=== PATIENT | male | born 1940 | race Caucasian/White ===

== ENCOUNTER 2016-03-11 05:15 | Inpatient (IN) | payer OTHER ==
[2016-03-11] VITALS (8 sets, daily range): BP systolic 102–158; BP diastolic 51–71
[~2016-03-11] VITALS: Ht 167.6 cm; Wt 72.2 kg
[~2016-03-11 05:15] MED LIST: ASPIR 8181 M1 PO; BENAZEPRIL HCL40 MG PO; CENTRUM SILVER1 EAC5 PO; CRESTOR40 MG PO; FLUOXETINE HCL10 M1 PO; HYDROCHLOROTHIA25 MG PO; METOPROLOL SUCC50 MG PO; OMEGA-3 KRILL1 EACH PO; PRILOSEC20 MG PO; TAMSULOSIN HCL0.4 MG PO; TYLENOL EXTRA500 MG PO; VITAMIN B-12500 MC5 SL; VITAMIN B-6200 M1 PO
[2016-03-11 06:25] LABS: HEMATOCRIT 40.4 % (38.0-50.0); MCH 28.1 PG (29.0-34.0); MCHC 32.2 G/DL (30.0-36.0); MCV 87.3 FL (86-99); MEAN PLAT.VOLUME 10.8 uM^3 (9.0-12.4); PLATELET COUNT 219 K/uL (156-360); RBC DIS.WIDTH-CV 15.2 % (11.8-14.6); RBC DIS.WIDTH-SD 48.7 % (39-53); RED BLOOD COUNT 4.63 M/uL (4.00-5.50); WHITE BLOOD COUNT 8.9 K/uL (4.1-10.2)
[2016-03-11 06:52] LABS: ANION GAP 9 MEQ/L (2-14); CHLORIDE 103 MEQ/L (99-109); GFR ESTIMATE (CALCULATED) 48 mL/min/; GLUCOSE 94 mg/dL (70-99); POTASSIUM 4.3 MEQ/L (3.7-5.4); SAMPLE HEMOLYSIS CHECK 0; SAMPLE ICTERIC CHECK 0; SAMPLE LIPEMIA CHECK 0; SODIUM 139 MEQ/L (136-147); UREA NITROGEN (BUN) 24 mg/dL (9-23)
[2016-03-12 03:43] VITALS: BP 103/52
[2016-03-12 06:21] LABS: HEMATOCRIT 33.4 % (38.0-50.0); MCV 87.2 FL (86-99)
[2016-03-12 08:19] VITALS: BP 98/53
== END 2016-03-12 10:43 | disposition home or self-care (01) | DRG 483 ==
LOC: 3WEST 05:15 → 2SOUTH 05:15 → 3WEST 10:48 → 2SOUTH 11:17 → 3WEST 03-12 10:43
PROVIDERS: Orthopaedic Surgery
PROC: 0RRK00Z Replacement of Left Shoulder Joint with Reverse Ball and Socket Synthetic Substitute, Open Approach (ICD-10-PCS; principal; 2016-03-11)
PROC: 3E0T3CZ (ICD-10-PCS; principal; 2016-03-11)
DX: M12.812 Other specific arthropathies, not elsewhere classified, left shoulder (principal); I10 Essential (primary) hypertension; E78.00 Pure hypercholesterolemia, unspecified; N40.0 Benign prostatic hyperplasia without lower urinary tract symptoms; K21.9 Gastro-esophageal reflux disease without esophagitis; Z79.82 Long term (current) use of aspirin; Z87.891 Personal history of nicotine dependence
CPT/HCPCS: 80048; 85014; 85018; 85027; C1713; J0171; J0330; J0690; J1100; J1170; J2250; J2405; J2710; J2795; J3010; J7050; J7120

== ENCOUNTER 2016-09-11 11:51 | Inpatient (IN) | payer OTHER ==
[~2016-09-11] VITALS: Ht 167.6 cm; Wt 68.8 kg
[2016-09-11 12:48] LABS: HEMATOCRIT 40.2 % (38.0-50.0); MCH 27.3 PG (29.0-34.0); MCHC 31.6 G/DL (30.0-36.0); MCV 86.3 FL (86-99); MEAN PLAT.VOLUME 10.1 uM^3 (9.0-12.4); PLATELET COUNT 192 K/uL (156-360); RBC DIS.WIDTH-CV 14.3 % (11.8-14.6); RBC DIS.WIDTH-SD 45.2 % (39-53); RED BLOOD COUNT 4.66 M/uL (4.00-5.50); WHITE BLOOD COUNT 10.3 K/uL (4.1-10.2)
[2016-09-11 13:01] LABS: CHLORIDE 109 mEq/L (99-109); POTASSIUM 4.2 mEq/L (3.7-5.4); SODIUM 140 mEq/L (136-147)
[2016-09-11 13:03] LABS: GLUCOSE 100 mg/dL (70-99)
[2016-09-11 13:05] LABS: ANION GAP 12 MEQ/L (2-14)
[2016-09-11 13:07] LABS: GFR ESTIMATE (CALCULATED) 39 mL/min/
[2016-09-11 13:08] LABS: UREA NITROGEN (BUN) 29 mg/dL (9-23)
[2016-09-11 14:06] LABS: TROP-I INTERPRETATION NEGATIVE; TROPONIN-I < 0.01 ng/mL (0.0-0.30)
[2016-09-11] MEDS ORDERED: CENTRUM SILVER1 EAC5 PO (16:13)
[2016-09-11] MEDS ORDERED: VITAMIN B-6100 MG PO (16:13)
[2016-09-11] MEDS ORDERED: NASONEX17 GM BOTH NARES (16:14)
[2016-09-11] MEDS ORDERED: AZELASTINE137 MCG/0. BOTH NARES (16:14)
[2016-09-11 21:06] VITALS: BP 149/63
[2016-09-11 22:05] LABS: ADD MIUA? NO; BILIRUBIN NEGATIVE; BLOOD NEGATIVE; COLOR YELLOW ((YELLOW)); GLUCOSE (STRIP) NEGATIVE; KETONES NEGATIVE; LEUKOCYTES NEGATIVE; NITRITE NEGATIVE; PROTEIN (STRIP) NEGATIVE; SPECIFIC GRAVITY 1.009 (1.000-1.030); UROBILINOGEN 0.2 MG/DL (0.2-1.0)
[2016-09-11 23:52] VITALS: BP 117/55
[2016-09-12 03:46] VITALS: BP 115/55
[2016-09-12 06:14] LABS: MCH 27.4 PG (29.0-34.0); MCHC 31.8 G/DL (30.0-36.0); MCV 86.3 FL (86-99); MEAN PLAT.VOLUME 10.4 uM^3 (9.0-12.4); PLATELET COUNT 170 K/uL (156-360); RBC DIS.WIDTH-CV 14.4 % (11.8-14.6); RBC DIS.WIDTH-SD 45.4 % (39-53); RED BLOOD COUNT 3.94 M/uL (4.00-5.50); WHITE BLOOD COUNT 9.3 K/uL (4.1-10.2)
[2016-09-12 07:15] LABS: ANION GAP 9 MEQ/L (2-14); CHLORIDE 109 MEQ/L (99-109); GFR ESTIMATE (CALCULATED) 52 mL/min/; GLUCOSE 120 mg/dL (70-99); POTASSIUM 4.9 MEQ/L (3.7-5.4); SAMPLE HEMOLYSIS CHECK 0; SAMPLE ICTERIC CHECK 0; SAMPLE LIPEMIA CHECK 0; SODIUM 141 MEQ/L (136-147); UREA NITROGEN (BUN) 25 mg/dL (9-23)
[2016-09-12 07:30] VITALS: BP 113/57
[2016-09-12 11:18] VITALS: BP 98/53
[2016-09-12 15:51] VITALS: BP 102/56
[2016-09-12 19:15] VITALS: BP 130/63
[2016-09-12 23:36] VITALS: BP 105/54
[2016-09-13 06:07] LABS: HEMATOCRIT 32.5 % (38.0-50.0); MCH 28.3 PG (29.0-34.0); MCHC 32.9 G/DL (30.0-36.0); MEAN PLAT.VOLUME 10.6 uM^3 (9.0-12.4); PLATELET COUNT 179 K/uL (156-360); RBC DIS.WIDTH-CV 14.6 % (11.8-14.6); RBC DIS.WIDTH-SD 45.4 % (39-53); RED BLOOD COUNT 3.78 M/uL (4.00-5.50); WHITE BLOOD COUNT 14.9 K/uL (4.1-10.2)
[2016-09-13 06:32] LABS: ANION GAP 8 MEQ/L (2-14); CHLORIDE 107 MEQ/L (99-109); GFR ESTIMATE (CALCULATED) 45 mL/min/; GLUCOSE 143 mg/dL (70-99); POTASSIUM 4.9 MEQ/L (3.7-5.4); SAMPLE HEMOLYSIS CHECK 0; SAMPLE ICTERIC CHECK 0; SAMPLE LIPEMIA CHECK 0; SODIUM 138 MEQ/L (136-147); UREA NITROGEN (BUN) 31 mg/dL (9-23)
[2016-09-13 08:11] LABS: INTERNAL CONTROL VALID? YES
[2016-09-13 08:30] VITALS: BP 122/58
[2016-09-13 12:33] LABS: CREATINE KINASE 111 IU/L (1-294)
[2016-09-13 16:46] VITALS: BP 104/52
[2016-09-13 23:13] VITALS: BP 109/55
[2016-09-14 06:12] LABS: MCH 28.8 PG (29.0-34.0); MCHC 33.8 G/DL (30.0-36.0); MCV 85.3 FL (86-99); MEAN PLAT.VOLUME 10.7 uM^3 (9.0-12.4); PLATELET COUNT 215 K/uL (156-360); RBC DIS.WIDTH-CV 14.6 % (11.8-14.6); RBC DIS.WIDTH-SD 45.1 % (39-53); RED BLOOD COUNT 3.75 M/uL (4.00-5.50); WHITE BLOOD COUNT 16.9 K/uL (4.1-10.2)
[2016-09-14 06:40] LABS: ANION GAP 8 MEQ/L (2-14); CHLORIDE 106 MEQ/L (99-109); GFR ESTIMATE (CALCULATED) 52 mL/min/; GLUCOSE 130 mg/dL (70-99); MAGNESIUM 2.2 mg/dl (1.3-2.7); POTASSIUM 4.9 MEQ/L (3.7-5.4); SAMPLE HEMOLYSIS CHECK 0; SAMPLE ICTERIC CHECK 0; SAMPLE LIPEMIA CHECK 0; SODIUM 139 MEQ/L (136-147); UREA NITROGEN (BUN) 38 mg/dL (9-23)
[2016-09-14 07:35] VITALS: BP 115/72
[2016-09-14 15:15] VITALS: BP 107/56
[2016-09-14 20:50] VITALS: BP 125/78
[2016-09-15 00:26] VITALS: BP 114/57
[2016-09-15 08:05] VITALS: BP 106/56
[2016-09-15 16:20] VITALS: BP 128/59
[2016-09-15 23:37] VITALS: BP 135/65
[2016-09-16 06:55] VITALS: BP 151/67
[2016-09-16 07:24] LABS: HEMATOCRIT 35.5 % (38.0-50.0); MCH 27.2 PG (29.0-34.0); MCHC 31.8 G/DL (30.0-36.0); MCV 85.3 FL (86-99); MEAN PLAT.VOLUME 10.3 uM^3 (9.0-12.4); PLATELET COUNT 209 K/uL (156-360); RBC DIS.WIDTH-CV 14.2 % (11.8-14.6); RBC DIS.WIDTH-SD 44.3 % (39-53); RED BLOOD COUNT 4.16 M/uL (4.00-5.50)
[2016-09-16 07:49] LABS: ANION GAP 8 MEQ/L (2-14); CHLORIDE 102 MEQ/L (99-109); GFR ESTIMATE (CALCULATED) 57 mL/min/; MAGNESIUM 2.3 mg/dl (1.3-2.7); POTASSIUM 4.7 MEQ/L (3.7-5.4); SAMPLE HEMOLYSIS CHECK 0; SAMPLE ICTERIC CHECK 0; SAMPLE LIPEMIA CHECK 0; SODIUM 139 MEQ/L (136-147); UREA NITROGEN (BUN) 36 mg/dL (9-23)
[2016-09-16 07:50] LABS: GLUCOSE 79 mg/dL (70-99)
[2016-09-16 15:46] VITALS: BP 113/53
[2016-09-16 23:58] VITALS: BP 129/68
[2016-09-17 03:43] VITALS: BP 125/78
[2016-09-17 08:06] VITALS: BP 111/65
[2016-09-17 15:28] VITALS: BP 128/68
[2016-09-18 00:12] VITALS: BP 108/61
[2016-09-18 08:46] VITALS: BP 93/61
[2016-09-18] MEDS ORDERED: ACIDOPHILUS LA1 EACH PO (11:56)
[2016-09-18] MEDS ORDERED: PREDNISONE10 MG PO (11:56)
[2016-09-18] MEDS ORDERED: CEFTIN500 MG PO (11:56)
== END 2016-09-18 14:25 | disposition home or self-care (01) | DRG 193 ==
LOC: EME 11:51 → RME 11:51 → 2EAST 17:14 → EDOF 17:14 → 2EAST 19:55
PROVIDERS: Hospitalist; Internal Medicine; Nurse Practitioner Family
DX: J18.9 Pneumonia, unspecified organism (principal); J96.01 Acute respiratory failure with hypoxia; N17.9 Acute kidney failure, unspecified; E87.2 Acidosis; J98.01 Acute bronchospasm; I12.9 Hypertensive chronic kidney disease with stage 1 through stage 4 chronic kidney disease, or unspecified chronic kidney disease; N18.3 Chronic kidney disease, stage 3 (moderate); J02.9 Acute pharyngitis, unspecified; E78.5 Hyperlipidemia, unspecified; K21.9 Gastro-esophageal reflux disease without esophagitis; N40.0 Benign prostatic hyperplasia without lower urinary tract symptoms; M19.90 Unspecified osteoarthritis, unspecified site; Z96.612 Presence of left artificial shoulder joint; Z87.891 Personal history of nicotine dependence
CPT/HCPCS: 71010; 71020; 80048; 81003; 82550; 83605; 83735; 84484; 85027; 87040; 87070; 87205; 87449; 87651 90; 93005; 94010; 94640; 94640 76; 94760; 94799; 99202; 99281; 99285; J0456; J0696; J1644; J2920; J2930; J7030; J7050; J7120; J7512; S0028

== ENCOUNTER 2017-01-14 11:18 | Inpatient (IN) | payer OTHER ==
[~2017-01-14] VITALS: Ht 167.6 cm; Wt 66.1 kg
[2017-01-14] VITALS (10 sets, daily range): BP systolic 105–135; BP diastolic 41–65
[~2017-01-14 11:18] MED LIST changes: +ACIDOPHILUS LA1 EACH PO; +AZELASTINE137 MCG/0. BOTH NARES; +CEFTIN500 MG PO; +NASONEX17 GM BOTH NARES; +PREDNISONE10 MG PO; +VITAMIN B-6100 MG PO
[2017-01-14 11:53] LABS: BASE EXCESS -4.4 mEq/L (-3 to +3); BICARBONATE 20.2 mEq/L (22-26); CARBOXY HGB 1.6 % (0-5); COMMENTS - BLOOD GASES A+C+; DEVICE NRB MASK; FI02 100 %; METHEMOGLOBIN 1.1 % (0-1.5); O2 FLOW 15 L/MIN; PCO2 35 mm Hg (35-45); PO2 75 mm Hg (80-100); SITE RR; pH 7.37 (7.35-7.45)
[2017-01-14 12:26] LABS: BASOPHIL COUNT 0.1 K/uL (0-0.1); EOSINOPHIL (%) 0.8 % (0-5); EOSINOPHIL COUNT 0.1 K/uL (0-0.3); HEMATOCRIT 40.7 % (38.0-50.0); IMMATURE GRANULOCYTE (%) 0.2 % (0.0-0.7); INSTRUMENT ABS NEUTROPHIL CT 14.4 K/uL; LYMPHOCYTE COUNT 0.9 K/uL (1.0-2.8); MCH 26.4 PG (29.0-34.0); MCV 85.3 FL (86-99); MEAN PLAT.VOLUME 9.1 uM^3 (9.0-12.4); MONOCYTE (%) 3.1 % (3-12); MONOCYTE COUNT 0.5 K/uL (0-0.8); NEUTROPHIL (%) 89.9 % (45-76); NEUTROPHIL COUNT 14.4 K/uL (1.8-6.4); PLATELET COUNT 213 K/uL (156-360); RBC DIS.WIDTH-CV 14.9 % (11.8-14.6); RBC DIS.WIDTH-SD 46.9 % (39-53); RED BLOOD COUNT 4.77 M/uL (4.00-5.50); WHITE BLOOD COUNT 16.1 K/uL (4.1-10.2)
[2017-01-14 12:37] LABS: CHLORIDE 110 mEq/L (99-109); POTASSIUM 4.8 mEq/L (3.7-5.4); SODIUM 141 mEq/L (136-147)
[2017-01-14 12:38] LABS: MAGNESIUM 2.1 mg/dL (1.3-2.7)
[2017-01-14 12:39] LABS: GLUCOSE 100 mg/dL (70-99)
[2017-01-14 12:41] LABS: ANION GAP 9 MEQ/L (2-14); TOTAL BILIRUBIN 0.6 mg/dL (0.0-1.0)
[2017-01-14 12:43] LABS: ALKALINE PHOSPHATASE 55 IU/L (3-129); GFR ESTIMATE (CALCULATED) 42 mL/min/
[2017-01-14 12:44] LABS: UREA NITROGEN (BUN) 35 mg/dL (9-23)
[2017-01-14 12:49] LABS: TROP-I INTERPRETATION NEGATIVE; TROPONIN-I < 0.01 ng/mL (0.0-0.30)
[2017-01-14] MEDS ORDERED: HEARTBURN MEDICATION PO (13:25)
[2017-01-14 16:33] LABS: METH RESISTANT S AUREUS PCR NEGATIVE (NEGATIVE)
[2017-01-14 16:35] LABS: PROBE CHECK PASS; SPECIMEN PROCESSING CONTROL PASS
[2017-01-15] VITALS (24 sets, daily range): BP systolic 107–138; BP diastolic 40–78
[2017-01-15] MEDS ORDERED: ANORO ELLIPTA1 EACH IH (11:20)
[2017-01-15] MEDS ORDERED: VENTOLIN HFA18 GM IH (11:20)
[2017-01-16] VITALS (24 sets, daily range): BP systolic 104–155; BP diastolic 37–88
[2017-01-16 13:35] LABS: BASE EXCESS 0 mEq/L (-3 to +3); BICARBONATE 23.6 mEq/L (22-26); CARBOXY HGB 1.7 % (0-5); METHEMOGLOBIN 1.6 % (0-1.5); PCO2 34 mm Hg (35-45); PO2 61 mm Hg (80-100); pH 7.45 (7.35-7.45)
[2017-01-16 13:36] LABS: COMMENTS - BLOOD GASES A+C+; DEVICE HHFNC; FI02 80 %; O2 FLOW 40 L/MIN; SITE RR; TOTAL RESP RATE 30 resp/min
[2017-01-16 13:40] LABS: MCH 26.8 PG (29.0-34.0); MCHC 31.8 G/DL (30.0-36.0); MCV 84.3 FL (86-99); PLATELET COUNT 223 K/uL (156-360); RED BLOOD COUNT 4.51 M/uL (4.00-5.50); WHITE BLOOD COUNT 11.9 K/uL (4.1-10.2)
[2017-01-16 13:51] LABS: ANION GAP 9 MEQ/L (2-14); CHLORIDE 106 MEQ/L (99-109); POTASSIUM 4.6 MEQ/L (3.7-5.4); SAMPLE HEMOLYSIS CHECK 0; SAMPLE ICTERIC CHECK 0; SAMPLE LIPEMIA CHECK 0; SODIUM 139 MEQ/L (136-147)
[2017-01-16 13:56] LABS: GFR ESTIMATE (CALCULATED) 57 mL/min/; GLUCOSE 140 mg/dL (70-99); UREA NITROGEN (BUN) 31 mg/dL (9-23)
[2017-01-17] VITALS: BP 115/47
[2017-01-17 01:00] VITALS: BP 115/50
[2017-01-17 04:00] VITALS: BP 104/48
[2017-01-17 08:00] VITALS: BP 104/52
[2017-01-17 08:33] LABS: BASE EXCESS 2.5 mEq/L (-3 to +3); BICARBONATE 26.3 mEq/L (22-26); CARBOXY HGB 1.9 % (0-5); COMMENTS - BLOOD GASES A+C+; METHEMOGLOBIN 1.6 % (0-1.5); PCO2 37 mm Hg (35-45); SITE RR; pH 7.46 (7.35-7.45)
[2017-01-17 08:34] LABS: DEVICE HHFLNC; FI02 100 %; O2 FLOW 55 L/MIN; PO2 48 mm Hg (80-100); TOTAL RESP RATE 22 resp/min
[2017-01-17 09:13] LABS: HEMATOCRIT 37.9 % (38.0-50.0); MCH 26.5 PG (29.0-34.0); MCHC 31.7 G/DL (30.0-36.0); MCV 83.7 FL (86-99); MEAN PLAT.VOLUME 10.1 uM^3 (9.0-12.4); PLATELET COUNT 243 K/uL (156-360); RBC DIS.WIDTH-CV 14.9 % (11.8-14.6); RBC DIS.WIDTH-SD 45.1 % (39-53); RED BLOOD COUNT 4.53 M/uL (4.00-5.50); WHITE BLOOD COUNT 13.4 K/uL (4.1-10.2)
[2017-01-17 09:35] LABS: ANION GAP 8 MEQ/L (2-14); CHLORIDE 103 MEQ/L (99-109); GFR ESTIMATE (CALCULATED) 57 mL/min/; GLUCOSE 102 mg/dL (70-99); POTASSIUM 4.6 MEQ/L (3.7-5.4); SAMPLE HEMOLYSIS CHECK 0; SAMPLE ICTERIC CHECK 0; SAMPLE LIPEMIA CHECK 0; SODIUM 138 MEQ/L (136-147); UREA NITROGEN (BUN) 30 mg/dL (9-23)
[2017-01-17 12:00] VITALS: BP 131/87
[2017-01-17 20:00] VITALS: BP 95/52
[2017-01-18] VITALS (11 sets, daily range): BP systolic 83–112; BP diastolic 40–59
[2017-01-18 05:00] LABS: HEMATOCRIT 37.8 % (38.0-50.0); MCH 26.9 PG (29.0-34.0); MCV 84.2 FL (86-99); MEAN PLAT.VOLUME 10.4 uM^3 (9.0-12.4); PLATELET COUNT 254 K/uL (156-360); RBC DIS.WIDTH-CV 14.8 % (11.8-14.6); RBC DIS.WIDTH-SD 45.3 % (39-53); RED BLOOD COUNT 4.49 M/uL (4.00-5.50); WHITE BLOOD COUNT 13.3 K/uL (4.1-10.2)
[2017-01-18 05:15] LABS: CHLORIDE 103 mEq/L (99-109); POTASSIUM 5.1 mEq/L (3.7-5.4); SODIUM 137 mEq/L (136-147)
[2017-01-18 05:17] LABS: GLUCOSE 138 mg/dL (70-99)
[2017-01-18 05:18] LABS: ANION GAP 8 MEQ/L (2-14)
[2017-01-18 05:21] LABS: GFR ESTIMATE (CALCULATED) 45 mL/min/
[2017-01-18 05:22] LABS: UREA NITROGEN (BUN) 38 mg/dL (9-23)
[2017-01-18 20:47] LABS: ANION GAP 10 MEQ/L (2-14); CHLORIDE 102 MEQ/L (99-109); GFR ESTIMATE (CALCULATED) 39 mL/min/; GLUCOSE 142 mg/dL (70-99); POTASSIUM 4.2 MEQ/L (3.7-5.4); SAMPLE HEMOLYSIS CHECK 0; SAMPLE ICTERIC CHECK 0; SAMPLE LIPEMIA CHECK 0; SODIUM 137 MEQ/L (136-147); UREA NITROGEN (BUN) 50 mg/dL (9-23)
[2017-01-19] VITALS (8 sets, daily range): BP systolic 102–144; BP diastolic 34–67
[2017-01-19 08:07] LABS: HEMATOCRIT 35.3 % (38.0-50.0); MCHC 31.2 G/DL (30.0-36.0); MCV 83.5 FL (86-99); MEAN PLAT.VOLUME 9.8 uM^3 (9.0-12.4); PLATELET COUNT 244 K/uL (156-360); RBC DIS.WIDTH-CV 14.7 % (11.8-14.6); RBC DIS.WIDTH-SD 45.1 % (39-53); RED BLOOD COUNT 4.23 M/uL (4.00-5.50); WHITE BLOOD COUNT 13.5 K/uL (4.1-10.2)
[2017-01-19 08:22] LABS: ANION GAP 7 MEQ/L (2-14); CHLORIDE 108 MEQ/L (99-109); POTASSIUM 4.8 MEQ/L (3.7-5.4); SAMPLE HEMOLYSIS CHECK 0; SAMPLE ICTERIC CHECK 0; SAMPLE LIPEMIA CHECK 0; SODIUM 140 MEQ/L (136-147)
[2017-01-19 08:28] LABS: GFR ESTIMATE (CALCULATED) 48 mL/min/; GLUCOSE 133 mg/dL (70-99); UREA NITROGEN (BUN) 43 mg/dL (9-23)
[2017-01-20] VITALS (12 sets, daily range): BP systolic 116–156; BP diastolic 48–87
[2017-01-20 05:20] LABS: HEMATOCRIT 33.2 % (38.0-50.0); MCH 26.8 PG (29.0-34.0); MCHC 31.6 G/DL (30.0-36.0); MCV 84.7 FL (86-99); MEAN PLAT.VOLUME 9.9 uM^3 (9.0-12.4); PLATELET COUNT 209 K/uL (156-360); RBC DIS.WIDTH-CV 15.1 % (11.8-14.6); RBC DIS.WIDTH-SD 45.9 % (39-53); RED BLOOD COUNT 3.92 M/uL (4.00-5.50); WHITE BLOOD COUNT 12.3 K/uL (4.1-10.2)
[2017-01-20 05:47] LABS: ANION GAP 5 MEQ/L (2-14); CHLORIDE 110 MEQ/L (99-109); GFR ESTIMATE (CALCULATED) 48 mL/min/; GLUCOSE 145 mg/dL (70-99); SAMPLE HEMOLYSIS CHECK 0; SAMPLE ICTERIC CHECK 0; SAMPLE LIPEMIA CHECK 0; SODIUM 141 MEQ/L (136-147); UREA NITROGEN (BUN) 39 mg/dL (9-23)
[2017-01-21] VITALS (9 sets, daily range): BP systolic 123–161; BP diastolic 46–74
[2017-01-21 05:47] LABS: HEMATOCRIT 33.5 % (38.0-50.0); MCH 25.9 PG (29.0-34.0); MCHC 30.7 G/DL (30.0-36.0); MCV 84.2 FL (86-99); PLATELET COUNT 230 K/uL (156-360); RBC DIS.WIDTH-CV 14.9 % (11.8-14.6); RBC DIS.WIDTH-SD 45.5 % (39-53); RED BLOOD COUNT 3.98 M/uL (4.00-5.50); WHITE BLOOD COUNT 11.6 K/uL (4.1-10.2)
[2017-01-21 06:31] LABS: ANION GAP 7 MEQ/L (2-14); CHLORIDE 110 MEQ/L (99-109); GFR ESTIMATE (CALCULATED) 52 mL/min/; GLUCOSE 121 mg/dL (70-99); POTASSIUM 4.6 MEQ/L (3.7-5.4); SAMPLE HEMOLYSIS CHECK 0; SAMPLE ICTERIC CHECK 0; SAMPLE LIPEMIA CHECK 0; SODIUM 141 MEQ/L (136-147); UREA NITROGEN (BUN) 31 mg/dL (9-23)
[2017-01-22] VITALS (11 sets, daily range): BP systolic 110–149; BP diastolic 44–78
[2017-01-22 05:57] LABS: HEMATOCRIT 33.7 % (38.0-50.0); MCH 26.4 PG (29.0-34.0); MCHC 31.5 G/DL (30.0-36.0); MCV 83.8 FL (86-99); MEAN PLAT.VOLUME 10.5 uM^3 (9.0-12.4); PLATELET COUNT 237 K/uL (156-360); RBC DIS.WIDTH-CV 14.9 % (11.8-14.6); RBC DIS.WIDTH-SD 45.2 % (39-53); RED BLOOD COUNT 4.02 M/uL (4.00-5.50); WHITE BLOOD COUNT 11.4 K/uL (4.1-10.2)
[2017-01-22 06:19] LABS: ANION GAP 7 MEQ/L (2-14); CHLORIDE 109 MEQ/L (99-109); GFR ESTIMATE (CALCULATED) 57 mL/min/; GLUCOSE 111 mg/dL (70-99); POTASSIUM 4.3 MEQ/L (3.7-5.4); SAMPLE HEMOLYSIS CHECK 0; SAMPLE ICTERIC CHECK 0; SAMPLE LIPEMIA CHECK 0; SODIUM 142 MEQ/L (136-147); UREA NITROGEN (BUN) 28 mg/dL (9-23)
[2017-01-23] VITALS (8 sets, daily range): BP systolic 129–169; BP diastolic 55–122
[2017-01-23 05:39] LABS: HEMATOCRIT 34.9 % (38.0-50.0); MCH 26.4 PG (29.0-34.0); MCHC 31.2 G/DL (30.0-36.0); MCV 84.5 FL (86-99); MEAN PLAT.VOLUME 10.2 uM^3 (9.0-12.4); PLATELET COUNT 239 K/uL (156-360); RBC DIS.WIDTH-CV 14.9 % (11.8-14.6); RBC DIS.WIDTH-SD 45.4 % (39-53); RED BLOOD COUNT 4.13 M/uL (4.00-5.50); WHITE BLOOD COUNT 12.2 K/uL (4.1-10.2)
[2017-01-23 06:00] LABS: ANION GAP 8 MEQ/L (2-14); CHLORIDE 112 MEQ/L (99-109); GFR ESTIMATE (CALCULATED) 57 mL/min/; GLUCOSE 121 mg/dL (70-99); POTASSIUM 4.4 MEQ/L (3.7-5.4); SAMPLE HEMOLYSIS CHECK 0; SAMPLE ICTERIC CHECK 0; SAMPLE LIPEMIA CHECK 0; SODIUM 146 MEQ/L (136-147); UREA NITROGEN (BUN) 30 mg/dL (9-23)
[2017-01-24] VITALS (7 sets, daily range): BP systolic 134–167; BP diastolic 58–81
[2017-01-25] VITALS (8 sets, daily range): BP systolic 84–169; BP diastolic 46–79
[2017-01-25 05:28] LABS: HEMATOCRIT 35.6 % (38.0-50.0); MCH 26.7 PG (29.0-34.0); MCHC 31.7 G/DL (30.0-36.0); MCV 84.2 FL (86-99); MEAN PLAT.VOLUME 10.1 uM^3 (9.0-12.4); PLATELET COUNT 242 K/uL (156-360); RBC DIS.WIDTH-CV 15.2 % (11.8-14.6); RBC DIS.WIDTH-SD 46.6 % (39-53); RED BLOOD COUNT 4.23 M/uL (4.00-5.50)
[2017-01-25 05:55] LABS: ANION GAP 6 MEQ/L (2-14); CHLORIDE 112 MEQ/L (99-109); GFR ESTIMATE (CALCULATED) > 59 mL/min/; GLUCOSE 114 mg/dL (70-99); POTASSIUM 4.7 MEQ/L (3.7-5.4); SAMPLE HEMOLYSIS CHECK 0; SAMPLE ICTERIC CHECK 0; SAMPLE LIPEMIA CHECK 0; SODIUM 146 MEQ/L (136-147); UREA NITROGEN (BUN) 31 mg/dL (9-23)
[2017-01-26 04:43] VITALS: BP 160/63
[2017-01-26 06:01] LABS: ANION GAP 8 MEQ/L (2-14); CHLORIDE 110 MEQ/L (99-109); GFR ESTIMATE (CALCULATED) > 59 mL/min/; GLUCOSE 120 mg/dL (70-99); POTASSIUM 4.8 MEQ/L (3.7-5.4); SAMPLE HEMOLYSIS CHECK 0; SAMPLE ICTERIC CHECK 0; SAMPLE LIPEMIA CHECK 0; SODIUM 144 MEQ/L (136-147); UREA NITROGEN (BUN) 33 mg/dL (9-23)
[2017-01-26 10:22] VITALS: BP 157/72
[2017-01-26 12:30] VITALS: BP 136/63
[2017-01-26 19:00] VITALS: BP 118/57
[2017-01-27 03:30] VITALS: BP 152/67
[2017-01-27 08:35] VITALS: BP 160/74
[2017-01-27 11:54] VITALS: BP 135/62
[2017-01-27] MEDS ORDERED: SPIRIVA18 MCG IH (12:41)
[2017-01-27] MEDS ORDERED: LEVOFLOXACIN750 MG PO (12:41)
[2017-01-27] MEDS ORDERED: DUONEB 2.5-0.5 M3 ML AEROSOL (12:45)
[2017-01-27] MEDS ORDERED: INCRUSE ELLI62.5 MCG IH (15:48)
[2017-01-27] MEDS ORDERED: LEVAQUIN750 MG PO (16:21)
[2017-01-27] MEDS ORDERED: PREDNISONE10 MG PO ×2 (17:17→17:21)
[2017-01-27 17:45] VITALS: BP 131/62
== END 2017-01-27 17:48 | disposition home health service (06) | DRG 871 ==
LOC: EME → EDBD 11:18 → 4WEST 14:09 → EDOF 14:09 → ENRESERV 14:13 → 4WEST 14:56 → ENRESERV 01-20 18:19 → 4WEST 01-20 18:35 → ENRESERV 01-23 08:49 → 4EAST 01-23 17:48
PROVIDERS: Emergency Medicine; Family Medicine; Hospitalist; Internal Medicine; Internal Medicine Critical Care Medicine
DX: A41.9 Sepsis, unspecified organism (principal); J44.0 Chronic obstructive pulmonary disease with (acute) lower respiratory infection; J18.9 Pneumonia, unspecified organism; J96.01 Acute respiratory failure with hypoxia; N17.9 Acute kidney failure, unspecified; J44.1 Chronic obstructive pulmonary disease with (acute) exacerbation; I95.9 Hypotension, unspecified; E87.3 Alkalosis; B37.0 Candidal stomatitis; I12.9 Hypertensive chronic kidney disease with stage 1 through stage 4 chronic kidney disease, or unspecified chronic kidney disease; N18.3 Chronic kidney disease, stage 3 (moderate); D63.1 Anemia in chronic kidney disease; R60.0 Localized edema; E78.5 Hyperlipidemia, unspecified; F32.9 Major depressive disorder, single episode, unspecified; M19.90 Unspecified osteoarthritis, unspecified site; N40.0 Benign prostatic hyperplasia without lower urinary tract symptoms; K21.9 Gastro-esophageal reflux disease without esophagitis; H91.90 Unspecified hearing loss, unspecified ear; Z87.891 Personal history of nicotine dependence
CPT/HCPCS: 36600; 71010; 71020; 71275; 74230; 80048; 80048 91; 80053; 82803; 83605; 83735; 84484; 85025; 85027; 87040; 87070; 87205; 87641; 90686; 92526 GN; 92610 GN; 92611 GN; 93005; 93306; 94010; 94640; 94640 76; 94667; 94668; 94760; 94799; 97530 GO; 99202; 99281; 99285; C8923; J1100; J1644; J2543; J2920; J2930; J3370; J7030; J7050; J7512

== ENCOUNTER 2017-02-06 10:01 | Inpatient (IN) | payer OTHER ==
[~2017-02-06] VITALS: Ht 167.6 cm; Wt 57.0 kg
[~2017-02-06 10:01] MED LIST changes: +ANORO ELLIPTA1 EACH IH; +DUONEB 2.5-0.5 M3 ML AEROSOL; +INCRUSE ELLI62.5 MCG IH; +LEVAQUIN750 MG PO; +LEVOFLOXACIN750 MG PO; +PRILOSEC OTC20 MG PO; +SPIRIVA18 MCG IH; +VENTOLIN HFA18 GM IH
[2017-02-06 10:43] LABS: BASOPHIL (%) 0.2 % (0-1); EOSINOPHIL (%) 0.9 % (0-5); EOSINOPHIL COUNT 0.1 K/uL (0-0.3); HEMATOCRIT 44.5 % (38.0-50.0); IMMATURE GRANULOCYTE (%) 0.3 % (0.0-0.7); LYMPHOCYTE (%) 11.1 % (15-42); LYMPHOCYTE COUNT 1.4 K/uL (1.0-2.8); MCH 26.6 PG (29.0-34.0); MCHC 32.6 G/DL (30.0-36.0); MCV 81.5 FL (86-99); MONOCYTE (%) 5.1 % (3-12); MONOCYTE COUNT 0.6 K/uL (0-0.8); NEUTROPHIL (%) 82.4 % (45-76); NEUTROPHIL COUNT 10.2 K/uL (1.8-6.4); PLATELET COUNT 244 K/uL (156-360); RBC DIS.WIDTH-CV 15.7 % (11.8-14.6); RBC DIS.WIDTH-SD 45.1 % (39-53); WHITE BLOOD COUNT 12.4 K/uL (4.1-10.2)
[2017-02-06 10:44] LABS: HEMOGLOBIN 14.5 G/DL (12.5-16.6); RED BLOOD COUNT 5.46 M/uL (4.00-5.50)
[2017-02-06 10:46] LABS: ALBUMIN 3.9 g/dL (3.2-4.8); CHLORIDE 100 mEq/L (99-109); POTASSIUM 4.5 mEq/L (3.7-5.4); SODIUM 138 mEq/L (136-147)
[2017-02-06 10:49] LABS: GLUCOSE 112 mg/dL (70-99); TOTAL PROTEIN 7.7 g/dL (6.4-8.3)
[2017-02-06 10:51] LABS: TOTAL BILIRUBIN 1.3 mg/dL (0.0-1.0)
[2017-02-06 10:52] LABS: ALKALINE PHOSPHATASE 66 IU/L (3-129); CREATININE 1.3 mg/dL (0.6-1.3); GFR ESTIMATE (CALCULATED) 57 mL/min/ (58.99-99999)
[2017-02-06 10:53] LABS: UREA NITROGEN (BUN) 25 mg/dL (9-23)
[2017-02-06 10:54] LABS: AST (GOT) 22 IU/L (2-34)
[2017-02-06 10:55] LABS: ALT (GPT) 26 IU/L (3-49)
[2017-02-06 10:56] LABS: LIPASE 21 U/L (1.0-51.0)
[2017-02-06 10:57] LABS: TROP-I INTERPRETATION NEGATIVE; TROPONIN-I 0.07 ng/mL (0.0-0.30)
[2017-02-06 15:33] LABS: MAGNESIUM 2.1 mg/dL (1.3-2.7)
[2017-02-06 16:05] LABS: HDL CHOLESTEROL 40 MG/DL (Desirable>=40); LDL CHOLESTEROL 66 mg/dL (Desirable<100); NON-HDL CHOLESTEROL 96 mg/dL (Desirable<160); TOTAL CHOLESTEROL 136 mg/dL (Desirable<200); TRIGLYCERIDES 152 MG/DL (Normal: <150)
[2017-02-06 16:45] LABS: TROP-I INTERPRETATION NEGATIVE; TROPONIN-I 0.06 ng/mL (0.0-0.30)
[2017-02-06 21:06] VITALS: BP 100/48
[2017-02-06 22:23] LABS: TROP-I INTERPRETATION NEGATIVE; TROPONIN-I 0.06 ng/mL (0.0-0.30)
[2017-02-06 23:34] VITALS: BP 110/47
[2017-02-07 03:39] VITALS: BP 117/54
[2017-02-07 07:26] LABS: CHLORIDE 110 MEQ/L (99-109); POTASSIUM 4.4 MEQ/L (3.7-5.4); SODIUM 140 MEQ/L (136-147)
[2017-02-07 07:32] LABS: GFR ESTIMATE (CALCULATED) > 59 mL/min/ (58.99-99999); GLUCOSE 134 mg/dL (70-99); UREA NITROGEN (BUN) 24 mg/dL (9-23)
[2017-02-07 07:36] LABS: HEMATOCRIT 38.1 % (38.0-50.0); MCH 25.9 PG (29.0-34.0); MCHC 31.5 G/DL (30.0-36.0); MCV 82.1 FL (86-99); PLATELET COUNT 199 K/uL (156-360); RBC DIS.WIDTH-CV 15.2 % (11.8-14.6); RBC DIS.WIDTH-SD 45.7 % (39-53); RED BLOOD COUNT 4.64 M/uL (4.00-5.50); WHITE BLOOD COUNT 9.2 K/uL (4.1-10.2)
[2017-02-07 08:00] VITALS: BP 119/61
[2017-02-07 11:38] VITALS: BP 127/52
[2017-02-07 16:00] VITALS: BP 130/59
[2017-02-07 19:00] VITALS: BP 125/52
[2017-02-07 23:10] VITALS: BP 138/52
[2017-02-08 04:20] VITALS: BP 138/57
[2017-02-08 08:12] VITALS: BP 127/62
[2017-02-08 10:58] VITALS: BP 134/79
[2017-02-08 19:18] VITALS: BP 134/51
[2017-02-08 23:03] VITALS: BP 126/54
[2017-02-09 04:15] VITALS: BP 126/85
[2017-02-09 06:40] LABS: CHLORIDE 113 MEQ/L (99-109); CREATININE 0.9 MG/DL (0.6-1.3); GFR ESTIMATE (CALCULATED) > 59 mL/min/ (58.99-99999); GLUCOSE 144 mg/dL (70-99); MAGNESIUM 1.9 mg/dl (1.3-2.7); POTASSIUM 4.4 MEQ/L (3.7-5.4); SODIUM 142 MEQ/L (136-147); UREA NITROGEN (BUN) 28 mg/dL (9-23)
[2017-02-09 06:48] LABS: INTER. NORMALIZED RATIO 1.2
[2017-02-09 06:58] LABS: HEMATOCRIT 29.9 % (38.0-50.0); MCH 26.4 PG (29.0-34.0); MCHC 32.1 G/DL (30.0-36.0); MCV 82.1 FL (86-99); PLATELET COUNT 197 K/uL (156-360); RBC DIS.WIDTH-CV 15.7 % (11.8-14.6); RBC DIS.WIDTH-SD 46.6 % (39-53); WHITE BLOOD COUNT 16.2 K/uL (4.1-10.2)
[2017-02-09 06:59] LABS: HEMOGLOBIN 9.6 G/DL (12.5-16.6); RED BLOOD COUNT 3.64 M/uL (4.00-5.50)
[2017-02-09 08:00] VITALS: BP 129/54
[2017-02-09 12:04] VITALS: BP 130/52
[2017-02-09 17:02] VITALS: BP 135/52
[2017-02-09 19:00] VITALS: BP 143/54
[2017-02-10] VITALS (7 sets, daily range): BP systolic 134–164; BP diastolic 56–67
[2017-02-10 05:43] LABS: BASOPHIL (%) 0.1 % (0-1); EOSINOPHIL (%) 0 % (0-5); HEMATOCRIT 31.2 % (38.0-50.0); HEMOGLOBIN 9.9 G/DL (12.5-16.6); IMMATURE GRANULOCYTE (%) 0.5 % (0.0-0.7); LYMPHOCYTE (%) 1.8 % (15-42); LYMPHOCYTE COUNT 0.3 K/uL (1.0-2.8); MCHC 31.7 G/DL (30.0-36.0); MCV 81.9 FL (86-99); MONOCYTE (%) 1.8 % (3-12); MONOCYTE COUNT 0.3 K/uL (0-0.8); NEUTROPHIL (%) 95.8 % (45-76); NEUTROPHIL COUNT 15.1 K/uL (1.8-6.4); PLATELET COUNT 199 K/uL (156-360); RBC DIS.WIDTH-CV 15.9 % (11.8-14.6); RBC DIS.WIDTH-SD 46.4 % (39-53); RED BLOOD COUNT 3.81 M/uL (4.00-5.50); WHITE BLOOD COUNT 15.7 K/uL (4.1-10.2)
[2017-02-10 06:11] LABS: CHLORIDE 112 MEQ/L (99-109); CREATININE 0.9 MG/DL (0.6-1.3); GFR ESTIMATE (CALCULATED) > 59 mL/min/ (58.99-99999); GLUCOSE 137 mg/dL (70-99); POTASSIUM 4.3 MEQ/L (3.7-5.4); SODIUM 142 MEQ/L (136-147); UREA NITROGEN (BUN) 28 mg/dL (9-23)
[2017-02-11] VITALS (12 sets, daily range): BP systolic 141–171; BP diastolic 63–93
[2017-02-11 05:30] LABS: BASOPHIL (%) 0.1 % (0-1); EOSINOPHIL (%) 0 % (0-5); HEMATOCRIT 30.8 % (38.0-50.0); HEMOGLOBIN 9.9 G/DL (12.5-16.6); IMMATURE GRANULOCYTE (%) 0.5 % (0.0-0.7); LYMPHOCYTE (%) 1.6 % (15-42); LYMPHOCYTE COUNT 0.2 K/uL (1.0-2.8); MCH 26.3 PG (29.0-34.0); MCHC 32.1 G/DL (30.0-36.0); MCV 81.9 FL (86-99); MONOCYTE COUNT 0.3 K/uL (0-0.8); NEUTROPHIL (%) 95.8 % (45-76); NEUTROPHIL COUNT 12.7 K/uL (1.8-6.4); PLATELET COUNT 179 K/uL (156-360); RBC DIS.WIDTH-CV 16.2 % (11.8-14.6); RBC DIS.WIDTH-SD 47.3 % (39-53); RED BLOOD COUNT 3.76 M/uL (4.00-5.50); WHITE BLOOD COUNT 13.2 K/uL (4.1-10.2)
[2017-02-11 05:54] LABS: CHLORIDE 109 MEQ/L (99-109); CREATININE 0.8 MG/DL (0.6-1.3); GFR ESTIMATE (CALCULATED) > 59 mL/min/ (58.99-99999); GLUCOSE 138 mg/dL (70-99); POTASSIUM 4.3 MEQ/L (3.7-5.4); SODIUM 141 MEQ/L (136-147); UREA NITROGEN (BUN) 30 mg/dL (9-23)
[2017-02-11 15:37] LABS: HEMATOCRIT 32.5 % (38.0-50.0); HEMOGLOBIN 10.6 G/DL (12.5-16.6); MCH 26.6 PG (29.0-34.0); MCHC 32.6 G/DL (30.0-36.0); MCV 81.5 FL (86-99); PLATELET COUNT 180 K/uL (156-360); RBC DIS.WIDTH-CV 16.2 % (11.8-14.6); RBC DIS.WIDTH-SD 46.6 % (39-53); RED BLOOD COUNT 3.99 M/uL (4.00-5.50)
[2017-02-11 16:35] LABS: INTER. NORMALIZED RATIO 1.5
[2017-02-11 16:38] LABS: PTT 28.4 SEC (25-37)
[2017-02-12] VITALS (12 sets, daily range): BP systolic 128–173; BP diastolic 55–74
[2017-02-12 05:06] LABS: BASOPHIL (%) 0 % (0-1); EOSINOPHIL (%) 0 % (0-5); HEMATOCRIT 27.2 % (38.0-50.0); HEMOGLOBIN 8.9 G/DL (12.5-16.6); IMMATURE GRANULOCYTE (%) 0.7 % (0.0-0.7); LYMPHOCYTE COUNT 0.2 K/uL (1.0-2.8); MCH 26.6 PG (29.0-34.0); MCHC 32.7 G/DL (30.0-36.0); MCV 81.2 FL (86-99); MONOCYTE COUNT 0.2 K/uL (0-0.8); NEUTROPHIL (%) 95.3 % (45-76); NEUTROPHIL COUNT 9.8 K/uL (1.8-6.4); PLATELET COUNT 162 K/uL (156-360); RBC DIS.WIDTH-SD 46.1 % (39-53); RED BLOOD COUNT 3.35 M/uL (4.00-5.50); WHITE BLOOD COUNT 10.2 K/uL (4.1-10.2)
[2017-02-12 05:19] LABS: CHLORIDE 107 mEq/L (99-109); POTASSIUM 4.3 mEq/L (3.7-5.4); SODIUM 141 mEq/L (136-147)
[2017-02-12 05:20] LABS: GLUCOSE 125 mg/dL (70-99)
[2017-02-12 05:24] LABS: CREATININE 0.8 mg/dL (0.6-1.3); GFR ESTIMATE (CALCULATED) > 59 mL/min/ (58.99-99999)
[2017-02-12 05:25] LABS: UREA NITROGEN (BUN) 33 mg/dL (9-23)
[2017-02-13 05:05] VITALS: BP 155/70
[2017-02-13 06:23] LABS: BASOPHIL (%) 0.1 % (0-1); EOSINOPHIL (%) 0 % (0-5); HEMATOCRIT 32.4 % (38.0-50.0); HEMOGLOBIN 10.3 G/DL (12.5-16.6); IMMATURE GRANULOCYTE (%) 0.3 % (0.0-0.7); LYMPHOCYTE (%) 2.4 % (15-42); LYMPHOCYTE COUNT 0.3 K/uL (1.0-2.8); MCHC 31.8 G/DL (30.0-36.0); MCV 81.8 FL (86-99); MONOCYTE (%) 3.8 % (3-12); MONOCYTE COUNT 0.4 K/uL (0-0.8); NEUTROPHIL (%) 93.4 % (45-76); PLATELET COUNT 167 K/uL (156-360); RBC DIS.WIDTH-CV 15.7 % (11.8-14.6); RBC DIS.WIDTH-SD 45.6 % (39-53); RED BLOOD COUNT 3.96 M/uL (4.00-5.50); WHITE BLOOD COUNT 11.7 K/uL (4.1-10.2)
[2017-02-13 06:35] LABS: CHLORIDE 108 MEQ/L (99-109); CREATININE 0.8 MG/DL (0.6-1.3); GFR ESTIMATE (CALCULATED) > 59 mL/min/ (58.99-99999); GLUCOSE 119 mg/dL (70-99); POTASSIUM 4.2 MEQ/L (3.7-5.4); SODIUM 142 MEQ/L (136-147); UREA NITROGEN (BUN) 30 mg/dL (9-23)
[2017-02-13 07:48] VITALS: BP 164/71
[2017-02-13 11:40] VITALS: BP 139/65
[2017-02-13 17:18] VITALS: BP 137/63
[2017-02-13 19:36] VITALS: BP 154/70
[2017-02-13 23:10] VITALS: BP 146/62
[2017-02-14 05:30] VITALS: BP 142/58
[2017-02-14 06:16] LABS: BASOPHIL (%) 0.1 % (0-1); EOSINOPHIL (%) 0 % (0-5); HEMATOCRIT 33.3 % (38.0-50.0); HEMOGLOBIN 10.6 G/DL (12.5-16.6); IMMATURE GRANULOCYTE (%) 0.7 % (0.0-0.7); LYMPHOCYTE (%) 3.3 % (15-42); LYMPHOCYTE COUNT 0.4 K/uL (1.0-2.8); MCH 26.2 PG (29.0-34.0); MCHC 31.8 G/DL (30.0-36.0); MCV 82.2 FL (86-99); MONOCYTE (%) 5.7 % (3-12); MONOCYTE COUNT 0.7 K/uL (0-0.8); NEUTROPHIL (%) 90.2 % (45-76); NEUTROPHIL COUNT 10.8 K/uL (1.8-6.4); PLATELET COUNT 163 K/uL (156-360); RBC DIS.WIDTH-CV 15.7 % (11.8-14.6); RBC DIS.WIDTH-SD 46.3 % (39-53); RED BLOOD COUNT 4.05 M/uL (4.00-5.50)
[2017-02-14 07:03] VITALS: BP 158/60
[2017-02-14 11:15] VITALS: BP 134/63
[2017-02-14 16:47] VITALS: BP 142/64
[2017-02-14 19:52] VITALS: BP 138/54
[2017-02-15] VITALS (7 sets, daily range): BP systolic 109–147; BP diastolic 55–90
[2017-02-15 09:28] LABS: BASOPHIL (%) 0.2 % (0-1); EOSINOPHIL (%) 0.1 % (0-5); HEMATOCRIT 38.7 % (38.0-50.0); HEMOGLOBIN 12.5 G/DL (12.5-16.6); IMMATURE GRANULOCYTE (%) 0.7 % (0.0-0.7); LYMPHOCYTE (%) 6.8 % (15-42); LYMPHOCYTE COUNT 0.8 K/uL (1.0-2.8); MCH 26.7 PG (29.0-34.0); MCHC 32.3 G/DL (30.0-36.0); MCV 82.5 FL (86-99); MONOCYTE (%) 5.8 % (3-12); MONOCYTE COUNT 0.7 K/uL (0-0.8); NEUTROPHIL (%) 86.4 % (45-76); NEUTROPHIL COUNT 10.5 K/uL (1.8-6.4); PLATELET COUNT 175 K/uL (156-360); RBC DIS.WIDTH-CV 15.9 % (11.8-14.6); RBC DIS.WIDTH-SD 46.6 % (39-53); RED BLOOD COUNT 4.69 M/uL (4.00-5.50); WHITE BLOOD COUNT 12.1 K/uL (4.1-10.2)
[2017-02-15 10:17] LABS: CHLORIDE 101 MEQ/L (99-109); CREATININE 0.7 MG/DL (0.6-1.3); GFR ESTIMATE (CALCULATED) > 59 mL/min/ (58.99-99999); POTASSIUM 4.6 MEQ/L (3.7-5.4); SODIUM 140 MEQ/L (136-147); UREA NITROGEN (BUN) 27 mg/dL (9-23)
[2017-02-15 10:18] LABS: GLUCOSE 69 mg/dL (70-99)
[2017-02-16] VITALS (13 sets, daily range): BP systolic 97–146; BP diastolic 55–85
[2017-02-16 06:27] LABS: CHLORIDE 100 MEQ/L (99-109); CREATININE 0.8 MG/DL (0.6-1.3); GFR ESTIMATE (CALCULATED) > 59 mL/min/ (58.99-99999); GLUCOSE 114 mg/dL (70-99); POTASSIUM 4.2 MEQ/L (3.7-5.4); SODIUM 137 MEQ/L (136-147); UREA NITROGEN (BUN) 29 mg/dL (9-23)
[2017-02-17 04:25] VITALS: BP 117/54
[2017-02-17 05:33] LABS: BASOPHIL (%) 0.1 % (0-1); EOSINOPHIL (%) 0 % (0-5); HEMATOCRIT 36.5 % (38.0-50.0); HEMOGLOBIN 11.9 G/DL (12.5-16.6); IMMATURE GRANULOCYTE (%) 0.7 % (0.0-0.7); LYMPHOCYTE (%) 3.5 % (15-42); LYMPHOCYTE COUNT 0.5 K/uL (1.0-2.8); MCH 26.4 PG (29.0-34.0); MCHC 32.6 G/DL (30.0-36.0); MCV 80.9 FL (86-99); MONOCYTE (%) 6.6 % (3-12); NEUTROPHIL (%) 89.1 % (45-76); NEUTROPHIL COUNT 13.3 K/uL (1.8-6.4); PLATELET COUNT 175 K/uL (156-360); RBC DIS.WIDTH-CV 16.2 % (11.8-14.6); RBC DIS.WIDTH-SD 46.5 % (39-53); RED BLOOD COUNT 4.51 M/uL (4.00-5.50); WHITE BLOOD COUNT 14.9 K/uL (4.1-10.2)
[2017-02-17 06:37] LABS: CHLORIDE 100 MEQ/L (99-109); CREATININE 0.8 MG/DL (0.6-1.3); GFR ESTIMATE (CALCULATED) > 59 mL/min/ (58.99-99999); GLUCOSE 112 mg/dL (70-99); POTASSIUM 3.9 MEQ/L (3.7-5.4); SODIUM 138 MEQ/L (136-147); UREA NITROGEN (BUN) 29 mg/dL (9-23)
[2017-02-17 08:34] VITALS: BP 10/64; BP 100/64
[2017-02-17 11:05] VITALS: BP 119/71; BP 199/71
[2017-02-17 15:57] VITALS: BP 126/56
[2017-02-17 19:14] VITALS: BP 118/59
[2017-02-17 23:33] VITALS: BP 132/74
[2017-02-18] VITALS (10 sets, daily range): BP systolic 107–139; BP diastolic 52–79
[2017-02-18 06:31] LABS: BASOPHIL (%) 0.1 % (0-1); EOSINOPHIL (%) 0 % (0-5); HEMATOCRIT 38.5 % (38.0-50.0); HEMOGLOBIN 12.7 G/DL (12.5-16.6); IMMATURE GRANULOCYTE (%) 1.2 % (0.0-0.7); LYMPHOCYTE (%) 3.2 % (15-42); LYMPHOCYTE COUNT 0.6 K/uL (1.0-2.8); MCH 27.2 PG (29.0-34.0); MCV 82.4 FL (86-99); MONOCYTE (%) 5.9 % (3-12); NEUTROPHIL (%) 89.6 % (45-76); NEUTROPHIL COUNT 15.6 K/uL (1.8-6.4); PLATELET COUNT 178 K/uL (156-360); RBC DIS.WIDTH-SD 48.6 % (39-53); RED BLOOD COUNT 4.67 M/uL (4.00-5.50); WHITE BLOOD COUNT 17.4 K/uL (4.1-10.2)
[2017-02-18 06:56] LABS: CHLORIDE 100 MEQ/L (99-109); CREATININE 0.9 MG/DL (0.6-1.3); GFR ESTIMATE (CALCULATED) > 59 mL/min/ (58.99-99999); GLUCOSE 97 mg/dL (70-99); SODIUM 141 MEQ/L (136-147); UREA NITROGEN (BUN) 34 mg/dL (9-23)
[2017-02-19 04:00] VITALS: BP 132/64
[2017-02-19 05:39] LABS: BASOPHIL (%) 0.1 % (0-1); EOSINOPHIL (%) 0 % (0-5); HEMATOCRIT 36.6 % (38.0-50.0); HEMOGLOBIN 11.7 G/DL (12.5-16.6); IMMATURE GRANULOCYTE (%) 0.8 % (0.0-0.7); LYMPHOCYTE (%) 1.6 % (15-42); LYMPHOCYTE COUNT 0.3 K/uL (1.0-2.8); MCH 26.4 PG (29.0-34.0); MCV 82.4 FL (86-99); MONOCYTE (%) 1.9 % (3-12); MONOCYTE COUNT 0.3 K/uL (0-0.8); NEUTROPHIL (%) 95.6 % (45-76); NEUTROPHIL COUNT 16.4 K/uL (1.8-6.4); PLATELET COUNT 174 K/uL (156-360); RBC DIS.WIDTH-CV 16.8 % (11.8-14.6); RBC DIS.WIDTH-SD 49.1 % (39-53); RED BLOOD COUNT 4.44 M/uL (4.00-5.50); WHITE BLOOD COUNT 17.1 K/uL (4.1-10.2)
[2017-02-19 06:08] LABS: CHLORIDE 100 MEQ/L (99-109); CREATININE 0.9 MG/DL (0.6-1.3); GFR ESTIMATE (CALCULATED) > 59 mL/min/ (58.99-99999); GLUCOSE 135 mg/dL (70-99); SODIUM 139 MEQ/L (136-147); UREA NITROGEN (BUN) 37 mg/dL (9-23)
[2017-02-19 07:12] VITALS: BP 135/62
[2017-02-19 11:18] VITALS: BP 124/69
[2017-02-19 14:24] VITALS: BP 124/67
[2017-02-19 20:00] VITALS: BP 125/58
[2017-02-19 23:55] VITALS: BP 113/72
[2017-02-20] VITALS (15 sets, daily range): BP systolic 118–137; BP diastolic 52–79
[2017-02-20 05:50] LABS: BASOPHIL (%) 0.1 % (0-1); EOSINOPHIL (%) 0 % (0-5); HEMATOCRIT 35.3 % (38.0-50.0); HEMOGLOBIN 11.3 G/DL (12.5-16.6); IMMATURE GRANULOCYTE (%) 0.7 % (0.0-0.7); LYMPHOCYTE (%) 1.3 % (15-42); LYMPHOCYTE COUNT 0.3 K/uL (1.0-2.8); MCH 26.3 PG (29.0-34.0); MCV 82.1 FL (86-99); MONOCYTE (%) 2.3 % (3-12); MONOCYTE COUNT 0.5 K/uL (0-0.8); NEUTROPHIL (%) 95.6 % (45-76); NEUTROPHIL COUNT 19.8 K/uL (1.8-6.4); PLATELET COUNT 168 K/uL (156-360); RBC DIS.WIDTH-CV 16.8 % (11.8-14.6); RBC DIS.WIDTH-SD 49.4 % (39-53); WHITE BLOOD COUNT 20.7 K/uL (4.1-10.2)
[2017-02-20 06:10] LABS: CHLORIDE 98 MEQ/L (99-109); GFR ESTIMATE (CALCULATED) > 59 mL/min/ (58.99-99999); GLUCOSE 147 mg/dL (70-99); MAGNESIUM 2.1 mg/dl (1.3-2.7); POTASSIUM 3.7 MEQ/L (3.7-5.4); SODIUM 138 MEQ/L (136-147); UREA NITROGEN (BUN) 41 mg/dL (9-23)
[2017-02-20 08:34] LABS: BASE EXCESS 6.6 mEq/L (-3 to +3); BICARBONATE 28.7 mEq/L (22-26); CARBOXY HGB 2.1 % (0-5); METHEMOGLOBIN 1.8 % (0-1.5); PO2 57 mm Hg (80-100)
[2017-02-20 08:35] LABS: COMMENTS - BLOOD GASES A+C+; PCO2 32 mm Hg (35-45); SITE LR
[2017-02-20 08:36] LABS: DEVICE HHF; FI02 80 %; O2 FLOW 35 L/MIN
[2017-02-20 08:37] LABS: pH 7.56 (7.35-7.45)
[2017-02-21] VITALS (19 sets, daily range): BP systolic 94–137; BP diastolic 50–82
[2017-02-21 05:34] LABS: BASOPHIL (%) 0.2 % (0-1); EOSINOPHIL (%) 0 % (0-5); HEMATOCRIT 35.1 % (38.0-50.0); HEMOGLOBIN 11.5 G/DL (12.5-16.6); IMMATURE GRANULOCYTE (%) 0.9 % (0.0-0.7); LYMPHOCYTE (%) 0.9 % (15-42); LYMPHOCYTE COUNT 0.2 K/uL (1.0-2.8); MCH 27.2 PG (29.0-34.0); MCHC 32.8 G/DL (30.0-36.0); MONOCYTE (%) 2.9 % (3-12); MONOCYTE COUNT 0.7 K/uL (0-0.8); NEUTROPHIL (%) 95.1 % (45-76); NEUTROPHIL COUNT 21.7 K/uL (1.8-6.4); PLATELET COUNT 144 K/uL (156-360); RBC DIS.WIDTH-CV 17.1 % (11.8-14.6); RBC DIS.WIDTH-SD 50.8 % (39-53); RED BLOOD COUNT 4.23 M/uL (4.00-5.50); WHITE BLOOD COUNT 22.9 K/uL (4.1-10.2)
[2017-02-21 06:14] LABS: CHLORIDE 98 MEQ/L (99-109); CREATININE 0.9 MG/DL (0.6-1.3); GFR ESTIMATE (CALCULATED) > 59 mL/min/ (58.99-99999); GLUCOSE 116 mg/dL (70-99); POTASSIUM 3.5 MEQ/L (3.7-5.4); SODIUM 139 MEQ/L (136-147); UREA NITROGEN (BUN) 38 mg/dL (9-23)
[2017-02-22] VITALS (8 sets, daily range): BP systolic 129–179; BP diastolic 65–92
[2017-02-22 05:31] LABS: BASOPHIL (%) 0.1 % (0-1); EOSINOPHIL (%) 0 % (0-5); HEMOGLOBIN 11.3 G/DL (12.5-16.6); IMMATURE GRANULOCYTE (%) 0.7 % (0.0-0.7); LYMPHOCYTE (%) 1.1 % (15-42); LYMPHOCYTE COUNT 0.2 K/uL (1.0-2.8); MCH 27.6 PG (29.0-34.0); MCHC 33.2 G/DL (30.0-36.0); MCV 83.1 FL (86-99); MONOCYTE (%) 2.5 % (3-12); MONOCYTE COUNT 0.5 K/uL (0-0.8); NEUTROPHIL (%) 95.6 % (45-76); PLATELET COUNT 138 K/uL (156-360); RBC DIS.WIDTH-SD 50.4 % (39-53); RED BLOOD COUNT 4.09 M/uL (4.00-5.50); WHITE BLOOD COUNT 19.9 K/uL (4.1-10.2)
[2017-02-22 05:57] LABS: ALBUMIN 2.9 G/DL (3.2-4.8); ALKALINE PHOSPHATASE 61 IU/L (3-129); ALT (GPT) 40 IU/L (3-49); AST (GOT) 18 IU/L (2-34); CHLORIDE 98 MEQ/L (99-109); CREATININE 0.9 MG/DL (0.6-1.3); GFR ESTIMATE (CALCULATED) > 59 mL/min/ (58.99-99999); GLUCOSE 128 mg/dL (70-99); POTASSIUM 3.5 MEQ/L (3.7-5.4); SODIUM 139 MEQ/L (136-147); TOTAL BILIRUBIN 0.7 MG/DL (0.0-1.0); TOTAL PROTEIN 4.8 G/DL (6.4-8.3); UREA NITROGEN (BUN) 42 mg/dL (9-23)
[2017-02-23 04:28] VITALS: BP 145/86
[2017-02-23 05:04] LABS: BASOPHIL (%) 0.1 % (0-1); EOSINOPHIL (%) 0 % (0-5); HEMATOCRIT 35.5 % (38.0-50.0); HEMOGLOBIN 11.6 G/DL (12.5-16.6); IMMATURE GRANULOCYTE (%) 0.7 % (0.0-0.7); LYMPHOCYTE (%) 0.8 % (15-42); LYMPHOCYTE COUNT 0.2 K/uL (1.0-2.8); MCH 27.1 PG (29.0-34.0); MCHC 32.7 G/DL (30.0-36.0); MCV 82.9 FL (86-99); MONOCYTE (%) 1.6 % (3-12); MONOCYTE COUNT 0.3 K/uL (0-0.8); NEUTROPHIL (%) 96.8 % (45-76); NEUTROPHIL COUNT 18.3 K/uL (1.8-6.4); PLATELET COUNT 130 K/uL (156-360); RBC DIS.WIDTH-CV 17.1 % (11.8-14.6); RBC DIS.WIDTH-SD 50.9 % (39-53); RED BLOOD COUNT 4.28 M/uL (4.00-5.50); WHITE BLOOD COUNT 18.9 K/uL (4.1-10.2)
[2017-02-23 05:20] LABS: CHLORIDE 100 mEq/L (99-109); SODIUM 139 mEq/L (136-147)
[2017-02-23 05:21] LABS: GLUCOSE 156 mg/dL (70-99)
[2017-02-23 05:25] LABS: CREATININE 0.8 mg/dL (0.6-1.3); GFR ESTIMATE (CALCULATED) > 59 mL/min/ (58.99-99999)
[2017-02-23 05:26] LABS: UREA NITROGEN (BUN) 36 mg/dL (9-23)
[2017-02-23 07:51] VITALS: BP 142/62
[2017-02-23 11:59] VITALS: BP 139/66
[2017-02-23 16:20] VITALS: BP 167/75
[2017-02-23 19:35] VITALS: BP 160/72
[2017-02-23 23:20] VITALS: BP 166/72
[2017-02-24 03:19] VITALS: BP 126/60
[2017-02-24 06:31] LABS: BASOPHIL (%) 0.1 % (0-1); EOSINOPHIL (%) 0 % (0-5); HEMATOCRIT 36.3 % (38.0-50.0); HEMOGLOBIN 11.7 G/DL (12.5-16.6); IMMATURE GRANULOCYTE (%) 1.1 % (0.0-0.7); LYMPHOCYTE (%) 1.2 % (15-42); LYMPHOCYTE COUNT 0.3 K/uL (1.0-2.8); MCH 26.7 PG (29.0-34.0); MCHC 32.2 G/DL (30.0-36.0); MCV 82.7 FL (86-99); MONOCYTE (%) 2.4 % (3-12); MONOCYTE COUNT 0.6 K/uL (0-0.8); NEUTROPHIL (%) 95.2 % (45-76); NEUTROPHIL COUNT 22.6 K/uL (1.8-6.4); PLATELET COUNT 148 K/uL (156-360); RBC DIS.WIDTH-CV 17.1 % (11.8-14.6); RBC DIS.WIDTH-SD 50.6 % (39-53); RED BLOOD COUNT 4.39 M/uL (4.00-5.50); WHITE BLOOD COUNT 23.7 K/uL (4.1-10.2)
[2017-02-24 06:40] LABS: CHLORIDE 99 MEQ/L (99-109); CREATININE 0.9 MG/DL (0.6-1.3); GFR ESTIMATE (CALCULATED) > 59 mL/min/ (58.99-99999); GLUCOSE 122 mg/dL (70-99); SODIUM 140 MEQ/L (136-147); UREA NITROGEN (BUN) 38 mg/dL (9-23)
[2017-02-24 07:37] VITALS: BP 134/62
[2017-02-24 12:20] VITALS: BP 158/67
[2017-02-24 16:19] VITALS: BP 138/64
[2017-02-24 21:00] VITALS: BP 164/71
[2017-02-25 00:15] VITALS: BP 169/74
[2017-02-25 04:31] VITALS: BP 147/65
[2017-02-25 05:46] LABS: BASOPHIL (%) 0.1 % (0-1); EOSINOPHIL (%) 0 % (0-5); HEMATOCRIT 34.3 % (38.0-50.0); IMMATURE GRANULOCYTE (%) 0.7 % (0.0-0.7); LYMPHOCYTE COUNT 0.2 K/uL (1.0-2.8); MCH 26.7 PG (29.0-34.0); MCHC 32.1 G/DL (30.0-36.0); MCV 83.3 FL (86-99); MONOCYTE (%) 2.4 % (3-12); MONOCYTE COUNT 0.5 K/uL (0-0.8); NEUTROPHIL (%) 95.8 % (45-76); NEUTROPHIL COUNT 20.1 K/uL (1.8-6.4); PLATELET COUNT 137 K/uL (156-360); RBC DIS.WIDTH-CV 17.5 % (11.8-14.6); RBC DIS.WIDTH-SD 52.5 % (39-53); RED BLOOD COUNT 4.12 M/uL (4.00-5.50)
[2017-02-25 05:55] LABS: INTER. NORMALIZED RATIO 1.2
[2017-02-25 05:58] LABS: PTT 26.6 SEC (25-37)
[2017-02-25 06:21] LABS: CHLORIDE 100 MEQ/L (99-109); CREATININE 0.9 MG/DL (0.6-1.3); GFR ESTIMATE (CALCULATED) > 59 mL/min/ (58.99-99999); GLUCOSE 129 mg/dL (70-99); POTASSIUM 3.8 MEQ/L (3.7-5.4); SODIUM 141 MEQ/L (136-147); UREA NITROGEN (BUN) 41 mg/dL (9-23)
[2017-02-25 07:16] VITALS: BP 136/63
[2017-02-25 12:23] VITALS: BP 134/62
[2017-02-25 16:04] VITALS: BP 126/60
[2017-02-25 20:00] VITALS: BP 149/67
[2017-02-26] VITALS (7 sets, daily range): BP systolic 118–162; BP diastolic 56–72
[2017-02-26 05:28] LABS: CHLORIDE 100 MEQ/L (99-109); CREATININE 0.8 MG/DL (0.6-1.3); GFR ESTIMATE (CALCULATED) > 59 mL/min/ (58.99-99999); GLUCOSE 98 mg/dL (70-99); SODIUM 138 MEQ/L (136-147); UREA NITROGEN (BUN) 34 mg/dL (9-23)
[2017-02-27 03:23] VITALS: BP 131/61
[2017-02-27 05:37] LABS: HEMATOCRIT 32.9 % (38.0-50.0); HEMOGLOBIN 10.5 G/DL (12.5-16.6); MCH 26.6 PG (29.0-34.0); MCHC 31.9 G/DL (30.0-36.0); MCV 83.3 FL (86-99); PLATELET COUNT 137 K/uL (156-360); RBC DIS.WIDTH-CV 17.5 % (11.8-14.6); RBC DIS.WIDTH-SD 52.6 % (39-53); RED BLOOD COUNT 3.95 M/uL (4.00-5.50); WHITE BLOOD COUNT 18.4 K/uL (4.1-10.2)
[2017-02-27 05:59] LABS: CHLORIDE 101 MEQ/L (99-109); CREATININE 0.7 MG/DL (0.6-1.3); GFR ESTIMATE (CALCULATED) > 59 mL/min/ (58.99-99999); GLUCOSE 86 mg/dL (70-99); POTASSIUM 3.8 MEQ/L (3.7-5.4); SODIUM 139 MEQ/L (136-147); UREA NITROGEN (BUN) 31 mg/dL (9-23)
[2017-02-27 08:38] VITALS: BP 132/61
[2017-02-27 12:50] VITALS: BP 135/64
[2017-02-27 15:51] VITALS: BP 132/63
[2017-02-27 19:05] VITALS: BP 130/60
[2017-02-27 22:15] VITALS: BP 126/60
[2017-02-28 04:17] VITALS: BP 139/66
[2017-02-28 06:52] VITALS: BP 132/67
[2017-02-28 11:54] VITALS: BP 149/67
[2017-02-28 16:12] VITALS: BP 135/63
[2017-02-28 21:00] VITALS: BP 165/73
[2017-03-01] VITALS (7 sets, daily range): BP systolic 128–152; BP diastolic 61–71
[2017-03-01 05:51] LABS: HEMATOCRIT 31.8 % (38.0-50.0); HEMOGLOBIN 10.2 G/DL (12.5-16.6); MCH 27.1 PG (29.0-34.0); MCHC 32.1 G/DL (30.0-36.0); MCV 84.6 FL (86-99); PLATELET COUNT 152 K/uL (156-360); RBC DIS.WIDTH-CV 17.8 % (11.8-14.6); RBC DIS.WIDTH-SD 53.9 % (39-53); RED BLOOD COUNT 3.76 M/uL (4.00-5.50); WHITE BLOOD COUNT 16.2 K/uL (4.1-10.2)
[2017-03-01 06:14] LABS: CHLORIDE 100 MEQ/L (99-109); CREATININE 0.8 MG/DL (0.6-1.3); GFR ESTIMATE (CALCULATED) > 59 mL/min/ (58.99-99999); GLUCOSE 102 mg/dL (70-99); POTASSIUM 4.4 MEQ/L (3.7-5.4); SODIUM 138 MEQ/L (136-147); UREA NITROGEN (BUN) 32 mg/dL (9-23)
[2017-03-02 04:54] VITALS: BP 136/63
[2017-03-02 05:30] LABS: HEMATOCRIT 32.6 % (38.0-50.0); HEMOGLOBIN 10.3 G/DL (12.5-16.6); MCH 26.5 PG (29.0-34.0); MCHC 31.6 G/DL (30.0-36.0); PLATELET COUNT 168 K/uL (156-360); RBC DIS.WIDTH-SD 54.3 % (39-53); RED BLOOD COUNT 3.88 M/uL (4.00-5.50); WHITE BLOOD COUNT 14.2 K/uL (4.1-10.2)
[2017-03-02 05:54] LABS: CHLORIDE 100 MEQ/L (99-109); CREATININE 0.8 MG/DL (0.6-1.3); GFR ESTIMATE (CALCULATED) > 59 mL/min/ (58.99-99999); GLUCOSE 93 mg/dL (70-99); SODIUM 137 MEQ/L (136-147); UREA NITROGEN (BUN) 32 mg/dL (9-23)
[2017-03-02 07:45] VITALS: BP 138/65
[2017-03-02 12:00] VITALS: BP 143/72
[2017-03-02 16:14] VITALS: BP 144/65
[2017-03-02 20:00] VITALS: BP 140/63
[2017-03-03 00:25] VITALS: BP 132/65
[2017-03-03 03:02] VITALS: BP 154/74
[2017-03-03 05:13] LABS: HEMATOCRIT 32.3 % (38.0-50.0); HEMOGLOBIN 10.3 G/DL (12.5-16.6); MCH 26.7 PG (29.0-34.0); MCHC 31.9 G/DL (30.0-36.0); MCV 83.7 FL (86-99); PLATELET COUNT 172 K/uL (156-360); RBC DIS.WIDTH-CV 18.2 % (11.8-14.6); RBC DIS.WIDTH-SD 54.3 % (39-53); RED BLOOD COUNT 3.86 M/uL (4.00-5.50); WHITE BLOOD COUNT 11.8 K/uL (4.1-10.2)
[2017-03-03 05:58] LABS: CHLORIDE 102 MEQ/L (99-109); CREATININE 0.8 MG/DL (0.6-1.3); GFR ESTIMATE (CALCULATED) > 59 mL/min/ (58.99-99999); GLUCOSE 81 mg/dL (70-99); SODIUM 141 MEQ/L (136-147); UREA NITROGEN (BUN) 29 mg/dL (9-23)
[2017-03-03 07:30] VITALS: BP 141/63
[2017-03-03 12:09] VITALS: BP 134/64
[2017-03-03 15:49] VITALS: BP 139/67
[2017-03-03 20:30] VITALS: BP 113/59
[2017-03-04 00:30] VITALS: BP 122/70
[2017-03-04 03:00] VITALS: BP 120/74
[2017-03-04 05:25] LABS: HEMATOCRIT 33.7 % (38.0-50.0); HEMOGLOBIN 10.7 G/DL (12.5-16.6); MCH 27.2 PG (29.0-34.0); MCHC 31.8 G/DL (30.0-36.0); MCV 85.8 FL (86-99); PLATELET COUNT 170 K/uL (156-360); RBC DIS.WIDTH-CV 18.5 % (11.8-14.6); RBC DIS.WIDTH-SD 56.7 % (39-53); RED BLOOD COUNT 3.93 M/uL (4.00-5.50); WHITE BLOOD COUNT 9.8 K/uL (4.1-10.2)
[2017-03-04 05:48] LABS: ALBUMIN 2.6 G/DL (3.2-4.8); ALKALINE PHOSPHATASE 55 IU/L (3-129); ALT (GPT) 99 IU/L (3-49); AST (GOT) 25 IU/L (2-34); CHLORIDE 101 MEQ/L (99-109); CREATININE 0.7 MG/DL (0.6-1.3); GFR ESTIMATE (CALCULATED) > 59 mL/min/ (58.99-99999); GLUCOSE 95 mg/dL (70-99); POTASSIUM 4.4 MEQ/L (3.7-5.4); SODIUM 141 MEQ/L (136-147); TOTAL BILIRUBIN 0.8 MG/DL (0.0-1.0); TOTAL PROTEIN 4.7 G/DL (6.4-8.3); UREA NITROGEN (BUN) 25 mg/dL (9-23)
[2017-03-04 05:50] LABS: ALBUMIN 2.6 G/DL (3.2-4.8); ALKALINE PHOSPHATASE 56 IU/L (3-129); ALT (GPT) 100 IU/L (3-49); AST (GOT) 24 IU/L (2-34); CHLORIDE 101 MEQ/L (99-109); CREATININE 0.7 MG/DL (0.6-1.3); DIRECT BILIRUBIN 0.2 mg/dL (0.0-0.3); GFR ESTIMATE (CALCULATED) > 59 mL/min/ (58.99-99999); GLUCOSE 94 mg/dL (70-99); PHOSPHORUS 3.3 mg/dL (2.5-4.9); POTASSIUM 4.3 MEQ/L (3.7-5.4); SODIUM 141 MEQ/L (136-147); TOTAL BILIRUBIN 0.8 MG/DL (0.0-1.0); TOTAL PROTEIN 4.7 G/DL (6.4-8.3); TRIGLYCERIDES 100 MG/DL (Normal: <150); UREA NITROGEN (BUN) 25 mg/dL (9-23)
[2017-03-04 07:28] VITALS: BP 136/63
[2017-03-04 11:48] VITALS: BP 137/62
[2017-03-04 18:32] VITALS: BP 130/66
[2017-03-04 19:30] VITALS: BP 134/63
[2017-03-05] VITALS (14 sets, daily range): BP systolic 102–134; BP diastolic 52–82
[2017-03-05 05:45] LABS: HEMATOCRIT 31.5 % (38.0-50.0); HEMOGLOBIN 10.2 G/DL (12.5-16.6); MCH 27.3 PG (29.0-34.0); MCHC 32.4 G/DL (30.0-36.0); MCV 84.5 FL (86-99); PLATELET COUNT 155 K/uL (156-360); RBC DIS.WIDTH-CV 18.8 % (11.8-14.6); RBC DIS.WIDTH-SD 56.9 % (39-53); RED BLOOD COUNT 3.73 M/uL (4.00-5.50); WHITE BLOOD COUNT 11.1 K/uL (4.1-10.2)
[2017-03-05 06:08] LABS: CHLORIDE 100 MEQ/L (99-109); CREATININE 0.7 MG/DL (0.6-1.3); GFR ESTIMATE (CALCULATED) > 59 mL/min/ (58.99-99999); POTASSIUM 3.7 MEQ/L (3.7-5.4); SODIUM 139 MEQ/L (136-147); UREA NITROGEN (BUN) 22 mg/dL (9-23)
[2017-03-05 06:09] LABS: GLUCOSE 64 mg/dL (70-99)
[2017-03-05 12:22] LABS: BASE EXCESS 7.1 mEq/L (-3 to +3); BICARBONATE 29.9 mEq/L (22-26); CARBOXY HGB 1.5 % (0-5); METHEMOGLOBIN 1.6 % (0-1.5); PCO2 35 mm Hg (35-45); pH 7.54 (7.35-7.45)
[2017-03-05 12:23] LABS: DEVICE NRBM; FI02 100 %; O2 FLOW 15 L/MIN; PO2 40 mm Hg (80-100); SITE RR
[2017-03-05 12:24] LABS: COMMENTS - BLOOD GASES A+C+
[2017-03-06] VITALS (18 sets, daily range): BP systolic 114–143; BP diastolic 53–66
[2017-03-06 05:59] LABS: EOSINOPHIL (%) 0 % (0-5); HEMOGLOBIN 11.1 G/DL (12.5-16.6); LYMPHOCYTE (%) 2.6 % (15-42); MCH 26.9 PG (29.0-34.0); MCHC 31.7 G/DL (30.0-36.0); MCV 84.7 FL (86-99); MONOCYTE (%) 0.9 % (3-12); NEUTROPHIL (%) 95.8 % (45-76); PLATELET COUNT 189 K/uL (156-360); RBC DIS.WIDTH-CV 19.3 % (11.8-14.6); RBC DIS.WIDTH-SD 58.2 % (39-53); RED BLOOD COUNT 4.13 M/uL (4.00-5.50)
[2017-03-06 06:00] LABS: BASOPHIL (%) 0.1 % (0-1); IMMATURE GRANULOCYTE (%) 0.6 % (0.0-0.7); LYMPHOCYTE COUNT 0.4 K/uL (1.0-2.8); MONOCYTE COUNT 0.2 K/uL (0-0.8); NEUTROPHIL COUNT 15.3 K/uL (1.8-6.4)
[2017-03-06 06:26] LABS: CHLORIDE 103 MEQ/L (99-109); CREATININE 0.7 MG/DL (0.6-1.3); GFR ESTIMATE (CALCULATED) > 59 mL/min/ (58.99-99999); POTASSIUM 3.8 MEQ/L (3.7-5.4); SODIUM 144 MEQ/L (136-147); UREA NITROGEN (BUN) 26 mg/dL (9-23)
[2017-03-06 06:27] LABS: GLUCOSE 49 mg/dL (70-99)
[2017-03-07 00:30] VITALS: BP 119/51
[2017-03-07 08:00] VITALS: BP 133/65
[2017-03-07 14:32] VITALS: BP 133/65
== END 2017-03-07 15:45 | DRG 264 ==
LOC: EME 10:01 → EDOF 15:01 → 4WEST 15:01 → 4EAST 15:01 → ENRESERV 15:03 → 4EAST 20:32 → 4WEST 02-20 11:32 → CANRESERV 02-21 07:35 → ENRESERV 02-21 07:35 → 4WEST 02-21 10:29 → ENRESERV 02-21 18:51 → 4EAST 02-21 22:18 → ENRESERV 03-05 12:24 → 4WEST 03-05 12:35 → ENRESERV 03-06 17:42 → 4SOUTH 03-06 19:16
PROVIDERS: Emergency Medicine Emergency Medical Services; Family Medicine; Internal Medicine; Internal Medicine Critical Care Medicine; Internal Medicine Medical Oncology; Physician Assistant; Physician Assistant Medical; Student in an Organized Health Care Education/Training Program
PROC: 30233K1 Transfusion of Nonautologous Frozen Plasma into Peripheral Vein, Percutaneous Approach (ICD-10-PCS; principal; 2017-02-11)
PROC: 2Y41X5Z Packing of Nasal Region using Packing Material (ICD-10-PCS; 2017-02-11)
PROC: 30233N1 Transfusion of Nonautologous Red Blood Cells into Peripheral Vein, Percutaneous Approach (ICD-10-PCS; 2017-02-12)
PROC: 0W3Q7ZZ Control Bleeding in Respiratory Tract, Via Natural or Artificial Opening (ICD-10-PCS; 2017-02-23)
PROC: 0B9J8ZX Drainage of Left Lower Lung Lobe, Via Natural or Artificial Opening Endoscopic, Diagnostic (ICD-10-PCS; 2017-02-27)
PROC: 3E03305 Introduction of Other Antineoplastic into Peripheral Vein, Percutaneous Approach (ICD-10-PCS; 2017-03-05)
DX: I48.92 Unspecified atrial flutter (principal); J69.0 Pneumonitis due to inhalation of food and vomit; J96.21 Acute and chronic respiratory failure with hypoxia; R65.20 Severe sepsis without septic shock; C34.32 Malignant neoplasm of lower lobe, left bronchus or lung; E87.3 Alkalosis; I13.0 Hypertensive heart and chronic kidney disease with heart failure and stage 1 through stage 4 chronic kidney disease, or unspecified chronic kidney disease; J44.1 Chronic obstructive pulmonary disease with (acute) exacerbation; B37.0 Candidal stomatitis; Z66 Do not resuscitate; F33.9 Major depressive disorder, recurrent, unspecified; R64 Cachexia; D68.32 Hemorrhagic disorder due to extrinsic circulating anticoagulants; J98.09 Other diseases of bronchus, not elsewhere classified; I50.810 Right heart failure, unspecified; R62.7 Adult failure to thrive; L89.322 Pressure ulcer of left buttock, stage 2; E78.2 Mixed hyperlipidemia; J34.2 Deviated nasal septum; N40.0 Benign prostatic hyperplasia without lower urinary tract symptoms; F41.9 Anxiety disorder, unspecified; N18.3 Chronic kidney disease, stage 3 (moderate); K21.9 Gastro-esophageal reflux disease without esophagitis; K59.00 Constipation, unspecified; M40.209 Unspecified kyphosis, site unspecified; E87.6 Hypokalemia; I25.10 Atherosclerotic heart disease of native coronary artery without angina pectoris; I27.29 Other secondary pulmonary hypertension; I48.91 Unspecified atrial fibrillation; I49.3 Ventricular premature depolarization; R63.6 Underweight; R04.0 Epistaxis; Z87.891 Personal history of nicotine dependence; Z68.20 Body mass index [BMI] 20.0-20.9, adult; T45.525A Adverse effect of antithrombotic drugs, initial encounter; Z87.01 Personal history of pneumonia (recurrent); Z95.1 Presence of aortocoronary bypass graft; T38.0X5A Adverse effect of glucocorticoids and synthetic analogues, initial encounter; Z79.51 Long term (current) use of inhaled steroids; Z99.81 Dependence on supplemental oxygen; Z79.82 Long term (current) use of aspirin; Z79.01 Long term (current) use of anticoagulants; Z82.3 Family history of stroke
CPT/HCPCS: 36600; 70553; 71010; 71020; 71045; 71250; 71275; 74230; 76001; 80048; 80053; 80061; 80076; 82803; 82948; 83605; 83690; 83735; 83880; 84100; 84134; 84478; 84484; 84630 90; 85014; 85018; 85025; 85027; 85379; 85610; 85730; 86850; 86860; 86870; 86880; 86900; 86901; 86920; 87040; 87070; 87102; 87116; 87205; 87206; 87278; 87449; 87641; 88108; 88305; 88341 TC; 88342 TC; 92526 GN; 92610 GN; 92611 GN; 93005; 93306; 93971; 94002; 94010; 94640; 94640 76; 94664; 94667; 94668; 94760; 94799; 97530 GO; 97530 GP; 99202; 99281; 99285; J0153; J0330; J0692; J0696; J1100; J1160; J1885; J1940; J2060; J2270; J2405; J2543; J2690; J2920; J2930; J3010; J3370; J7030; J7042; J7050; J7512; P9016; P9017